=== PATIENT | male | born 1960 | race Caucasian/White ===

== ENCOUNTER 2020-09-22 17:38 | Inpatient (IN) ==
--- OUTSIDE RECORDS SUMMARY | 2020-09-22 17:42 | External Medical Summary | Continuity of Care Document ---
:1960 Author Name Vinny Mauricio, Provider Address Unavailable Unavailable , Care Team Providers Name Role Phone Unavailable Unavailable Unavailable Haleigh Brenner [email or web address] [place] Shakira MOREJON M.D. Unavailable Unavailable Unavailable Unavailable Unavailable Problems Cough (786.2) (R05) Nephrolithiasis (592.0) (N20.0) Hypothyroidism (244.9) (E03.9) Hypertension (401.9) (I10) Esophageal reflux (530.81) (K21.9) Allergies and Adverse Reactions No Known Drug Allergies (Allergy) Medications Lisinopril-hydroCHLOROthiazide 20-12.5 M G Oral Tablet; TAKE ONE TABLET BY MOUTH ONCE DAILY ANNA Brenner Start: 16-Feb-2014 Quantity: 30 Refills: 11 dilTIAZem HCl ER Coated Beads 240 MG Ora l Capsule Extended Release 24 Hour; TAKE 1 CAPSULE DAILY. ANNA Brenner Start: 16-Feb-2014 Quantity: 30 Refills: 3 Omeprazole 20 MG Oral Tablet Delayed Release; Take 1 tablet daily Luly Morejon Start: 16-Jan-2014 Refills: 0 Mario Beavers Levothyroxine Sodium 75 MCG Oral Tablet; TAKE ONE TABL ET BY MOUTH ONCE DAILY ANNA Brenner Start: 18-Mar-2014 Quantity: 30 Refills: 11 Procedures History of Appendectomy Status: Complete d History of Kidney Surgery Status: Comple liang History of Renal Lithotripsy Status: Com pleted Immunizations Immunizations not documented Family History Father Family history of Hypertension (V17.49) Status: Active Mother Family history of Family Health Status Of Mother - Status: Active Family history of Breast Cancer (V16.3) Status: Active Brother Family history of Family Health Status Of Brother - Good Sta tus: Active Sister Family history of Family Health Status Of Sister - Good Stat us: Active Social History - Smoking Status Ex-smoker Plan of Treatment Planned Observations Planned Goals not documented Results No Known Results Results not documented
--- OUTSIDE RECORDS SUMMARY | 2020-09-22 17:43 | External Medical Summary | Continuity of Care Document ---
:1960 Author Name Vinny Mauricio, Provider Address Unavailable Unavailable , Care Team Providers Name Role Phone Unavailable Unavailable Unavailable Haleigh Brenner PA-C Unavailable [email or web address] Shakira MOREJON M.D. Unavailable Unavailable Unavailable Unavailable Unavailable Problems Cough (786.2) (R05) Nephrolithiasis (592.0) (N20.0) Hypothyroidism (244.9) (E03.9) Hypertension (401.9) (I10) Esophageal reflux (530.81) (K21.9) Allergies and Adverse Reactions No Known Drug Allergies (Allergy) Medications Omeprazole 20 MG Oral Tablet Delayed Release; Take 1 t ablet daily Luly Morejon Start: 16-Jan-2014 Refills: 0 Lisinopril-hydroCHLOROthiazide 20-12.5 M G Oral Tablet; TAKE ONE TABLET BY MOUTH ONCE DAILY ANNA Brenner Start: 16-Feb-2014 Quantity: 30 Refills: 11 dilTIAZem HCl ER Coated Beads 240 MG Ora l Capsule Extended Release 24 Hour; TAKE 1 CAPSULE DAILY. ANNA Brenner Start: 16-Feb-2014 Quantity: 30 Refills: 3 Levothyroxine Sodium 75 MCG Oral Tablet; TAKE [...]
--- NOTE | 2020-09-22 18:13 | Emergency Department Note ---
Impression & Plan Right arm weakness, Hypertension, Elevated troponin, Stroke-like symptoms ED Provider Note NAME: TYE SCHAFFER AGE: 59 SEX: M : 1960 ARRIVES VIA: Walk-In INFORMANT: [Patient][] ED PROVIDER(S): [Senthil Underwood MD] CHIEF COMPLAINT: Stroke evaluation HISTORY OF PRESENT ILLNESS: The patient is a 59-year-old male presents with 3 days of symptoms. The patient states that he has noticed that his right arm is weak and numb and he is having a hard time controlling it. He could not shave for example and has a hard time driving. He states that he just does not seem to have the right functionality of the right arm. He also today, noticed some right facial numbness. His has noticed that his speech is slightly slurred. The patient also has been dizzy and somewhat off balance. He staggered a few times. He denies any lower extremity weakness or numbness. There has been no fever, chills, cough or congestion. No chest pain, no headache. The patient does not have any history of CVA. No known COVID-19 exposures. Of note, the patient has not taken his blood pressure medication in multiple years. REVIEW OF SYSTEMS: See HPI for pertinent positives and negatives. A total of ten systems were reviewed and were otherwise negative. PMHx/PSHx: See Below SOCIAL HISTORY: See Below. PHYSICAL EXAM: GENERAL: Patient is in no acute distress. HEENT: No acute trauma, normocephalic atraumatic, mucous membranes moist, no nasal congestion, no scleral icterus. NECK: No stridor, no adenopathy, no meningismus, trachea is midline. LUNGS: Clear to auscultation bilaterally, no wheeze, no rhonchi, breath sounds equal. HEART: Without murmurs gallops or rubs, regular rate and rhythm. ABDOMEN: Soft, nontender, bowel sounds positive, no hernias, no peritonitis. EXTREMITIES: No cyanosis or edema, full range of motion of all the joints without pain or difficulty, no signs for acute trauma. NEUROLOGIC: Oriented x 3. There is no facial droop. The speech is slightly slurred. He does have decreased right upper extremity cerebellar functionality. No extremity drifting to the upper or lower extremities. No lower extremity cerebellar dysfunction. SKIN: No rash, no jaundice, no diaphoresis. DIFFERENTIAL DIAGNOSIS: Infection, dehydration, metabolic abnormality, hypo/hyperglycemia, stroke, TIA, intracranial bleeding, electrolyte disturbance, anemia, hypoxia, cardiac sources, intracerebral event, toxicologic, neurologic, as well as other pathologies. EMERGENCY DEPARTMENT COURSE/PROCEDURES: ECG: Indication was possible stroke. The ECG shows a normal sinus rhythm with some nonspecific ST change. There is some LVH present. There are inverted T waves laterally possibly consistent with the LVH. The rate is 79. The QTc is 421. Continuous Cardiac Monitoring: An order was placed for continuous cardiac monitoring. The monitor shows a rate of 67 with normal sinus rhythm. Critical Care Note: I have personally spent 35 minutes of critical care time in the direct management of this patient. This includes bedside care, interpre tation of diagnostic studies, and testing, discussion with consultants, patient, and family members, and other required patient management activities. This 35 minutes is in excess of all separately billable procedures. MEDICAL DECISION MAKING: There is no leukocytosis or concerning anemia. There is a normal platelet count. No coagulopathy. No kidney failure. Magnesium is slightly low at 1.7. No liver enzyme elevation. ECG shows a normal sinus rhythm with LVH. No ST elevation. Cardiac enzyme testing x1 is slightly elevated, this elevation could indicate some cardiac injury or strain. Brain CT shows no acute bleed or mass- effect. CT angio of the head and neck does not show any significant stenosis or thrombosis. On exam, the patient was hypertensive. He had some cerebellar dysfunction with the right upper extremity. I thought I noticed a slight speech slur at times. Patient received IV labetalol and then IV hydralazine, this did help control his blood pressure. He received IV magnesium for the slightly low magnesium value. The patient presents with hypertension, strokelike symptoms, right arm weakness. He has an elevated troponin on work-up. I do think a hospital stay is warranted. He requires a full stroke work-up and blood pressure control. He requires a cardiac work-up. I did speak to the patient, I spoke with case management. The on-call hospitalist was consulted. Of note, the patient is clearly not a TPA candidate. His symptoms began 3 days ago. He is out of the TPA window. Past Med/Surg History Medical History Hypertension Social History Smoking Status: Former smoker Tobacco Type: Cigarettes Feels Safe at Home: Yes Allergies Allergies Allergy/AdvReac Type Severity Reaction Status Date / Time No Known Allergies Allergy Unverified 09/22/20 20:57 Home Meds Home Medications Medication Instructions Recorded Confirmed omeprazole magnesium [Prilosec OTC] 20 mg PO DAILY 09/22/20 09/22/20 Results & Data (ED) Vital Signs Vital Signs - 24 hr 09/22/20 17:42 09/22/20 18:03 09/22/20 18:07 Temperature Source Oral Pulse Rate 88 87 Pulse Rate from SpO2 Sensor Respiratory Rate 20 20 Respiratory Effort / Characteristics Non-Labored Respiratory Depth Normal Normal Blood Pressure 215/102 H Blood Pressure [Right Arm] Blood Pressure Mean 139 Blood Pressure Mean [Right Arm] Pulse Oximetry 96 Oxygen Delivery Method Room Air Room Air Sepsis Recent Fever Within 48 Hours No Sepsis New/Unexplained Change in Mental Status N/A Sepsis Action Taken by Nursing No Action Required 09/22/20 18:16 09/22/20 18:24 09/22/20 18:30 Temperature Source Pulse Rate 76 73 82 Pulse Rate from SpO2 Sensor Respiratory Rate 16 19 20 Respiratory Effort / Characteristics Respiratory Depth Blood Pressure 176/104 H 172/98 H Blood Pressure [Right Arm] 176/104 H Blood Pressure Mean 134 130 Blood Pressure Mean [Right Arm] 128 Pulse Oximetry 98 Oxygen Delivery Method Sepsis Recent Fever Within 48 Hours Sepsis New/Unexplained Change in Mental Status Sepsis Action Taken by Nursing 09/22/20 18:31 09/22/20 18:56 09/22/20 19:08 Temperature Source Pulse Rate 78 Pulse Rate from SpO2 Sensor Respiratory Rate 17 20 Respiratory Effort / Characteristics Respiratory Depth Blood Pressure 160/86 H Blood Pressure [Right Arm] Blood Pressure Mean 100 Blood Pressure Mean [Right Arm] Pulse Oximetry Oxygen Delivery Method Sepsis Recent Fever Within 48 Hours Sepsis New/Unexplained Change in Mental Status Sepsis Action Taken by Nursing 09/22/20 19:30 09/22/20 19:31 09/22/20 20:00 Temperature Source Pulse Rate 69 70 69 Pulse Rate from SpO2 Sensor 69 69 68 Respiratory Rate 17 14 21 Respiratory Effort / Characteristics Respiratory Depth Blood Pressure 170/97 H 164/103 H Blood Pressure [Right Arm] Blood Pressure Mean 141 119 Blood Pressure Mean [Right Arm] Pulse Oximetry 94 95 96 Oxygen Delivery Method Sepsis Recent Fever Within 48 Hours Sepsis New/Unexplained Change in Mental Status Sepsis Action Taken by Nursing 09/22/20 20:01 09/22/20 20:30 09/22/20 20:31 Temperature Source Pulse Rate 73 68 67 Pulse Rate from SpO2 Sensor 73 69 68 Respiratory Rate 15 20 17 Respiratory Effort / Characteristics Respiratory Depth Blood Pressure 166/99 H Blood Pressure [Right Arm] Blood Pressure Mean 127 Blood Pressure Mean [Right Arm] Pulse Oximetry 96 93 93 Oxygen Delivery Method Sepsis Recent Fever Within 48 Hours Sepsis New/Unexplained Change in Mental Status Sepsis Action Taken by [facility] Medications Current Medication List: was personally reviewed by me Laboratory Data Attestation: I reviewed the patient's lab results. Result diagrams: 09/22/20 17:55 09/22/20 17:55 Lab Results 09/22/20 09/22/20 09/22/20 Range/Units 17:55 17:55 17:55 WBC 9.16 (4.8-10.8) K/uL RBC 4.83 (4.7-6.1) M/uL Hgb 14.6 (14.0-18.0) g/dL Hct 41.0 L (42-52) % MCV 84.9 (80-100) fL MCH 30.2 (25-34) pg MCHC 35.6 (32-36) g/dL RDW Std Deviation 40.1 (36.4-46.3) fL RDW Coeff of Eran 13.1 (11.5-14.5) % Plt Count 317 (130-400) K/uL MPV 9.8 (7.4-10.4) fL Immature Gran % (Auto) 0.3 % Neut % (Auto) 54.3 % Lymph % (Auto) 33.0 % [place] % (Auto) 8.1 % Eos % (Auto) 3.5 % Baso % (Auto) 0.8 % Neut # (Auto) 4.98 (1.4-6.5) K/uL Lymph # (Auto) 3.02 (1.2-3.4) K/uL [place] # (Auto) 0.74 H (0.11-0.59) K/uL Eos # (Auto) 0.32 (0-0.5) K/uL Baso # (Auto) 0.07 (0-0.2) K/uL Immature Gran # (Auto) 0.03 H (0.00-0.02) K/uL PT 10.4 (9.0-12.0) Seconds INR 1.0 (0.9-1.1) APTT 26.8 (21.0-31.0) Seconds PTT Ratio 1.0 Sodium 138 (136-145) mmol/L Potassium 3.9 (3.5-5.1) mmol/L Chloride 105 (98-107) mmol/L Carbon Dioxide 27 (21-32) mmol/L Anion Gap 6.0 (3-11) BUN 12 (7-18) mg/dl Creatinine 1.16 (0.6-1.4) mg/dl Est Cr Clr Drug Dosing 80.5 ml/min Est GFR ( Amer) 80.0 Est GFR (Non-Af Amer) 69.0 BUN/Creatinine Ratio 10.0 (10-20) Glucose 149 H (70-99) mg/dl POC Glucose (70-99) mg/dl Calcium 8.5 (8.5-10.1) mg/dl Magnesium 1.7 L (1.8-2.4) mg/dl Total Bilirubin 0.3 (0.2-1) mg/dl AST 28 (15-37) U/L ALT 55 (12-78) U/L Alkaline Phosphatase 99 (45-117) U/L Troponin I 0.052 H* (0-0.045) ng/ml Total Protein 8.4 H (6.4-8.2) gm/dl Albumin 3.9 (3.4-5.0) gm/dl Globulin 4.5 H (2.5-4.0) gm/dl Albumin/Globulin Ratio 0.9 (0.9-2) Blood Type Antibody Screen 09/22/20 09/22/20 Range/Units 18:18 18:26 WBC (4.8-10.8) K/uL RBC (4.7-6.1) M/uL Hgb (14.0-18.0) g/dL Hct (42-52) % MCV (80-100) fL MCH (25-34) pg MCHC (32-36) g/dL RDW Std Deviation (36.4-46.3) fL RDW Coeff of Eran (11.5-14.5) % Plt Count (130-400) K/uL MPV (7.4-10.4) fL Immature Gran % (Auto) % Neut % (Auto) % Lymph % (Auto) % [place] % (Auto) % Eos % (Auto) % Baso % (Auto) % Neut # (Auto) (1.4-6.5) K/uL Lymph # (Auto) (1.2-3.4) K/uL [place] # (Auto) (0.11-0.59) K/uL Eos # (Auto) (0-0.5) K/uL Baso # (Auto) (0-0.2) K/uL Immature Gran # (Auto) (0.00-0.02) K/uL PT (9.0-12.0) Seconds INR (0.9-1.1) APTT (21.0-31.0) Seconds PTT Ratio Sodium (136-145) mmol/L Potassium (3.5-5.1) mmol/L Chloride (98-107) mmol/L Carbon Dioxide (21-32) mmol/L Anion Gap (3-11) BUN (7-18) mg/dl Creatinine (0.6-1.4) mg/dl Est Cr Clr Drug Dosing ml/min Est GFR ( Amer) Est GFR (Non-Af Amer) BUN/Creatinine Ratio (10-20) Glucose (70-99) mg/dl POC Glucose 133 H (70-99) mg/dl Calcium (8.5-10.1) mg/dl Magnesium (1.8-2.4) mg/dl Total Bilirubin (0.2-1) mg/dl AST (15-37) U/L ALT (12-78) U/L Alkaline Phosphatase (45-117) U/L Troponin I (0-0.045) ng/ml Total Protein (6.4-8.2) gm/dl Albumin (3.4-5.0) gm/dl Globulin (2.5-4.0) gm/dl Albumin/Globulin Ratio (0.9-2) Blood Type O Positive Antibody Screen NEGATIVE Administered Medications Discontinued Medications Hydralazine HCl (Hydralazine Hcl 20 Mg/Ml Vial) 10 mg IV NOW STA Stop: 09/22/20 20:17 Last Admin: 09/22/20 20:36 Dose: 10 mg Documented by: [id number] Magnesium Sulfate/Dextrose (Magnesium Sulfate / D5w) 1 gm in 100 mls @ 100 mls/hr IV NOW STA Stop: 09/22/20 19:53 Last Infusion: 09/22/20 20:37 Dose: 0 mls/hr Documented by: [id number] Admin: 09/22/20 19:34 Dose: 100 mls/hr Documented by: [id number] Labetalol HCl (Labetalol Hcl Iv 5 Mg/Ml 20ml) 10 mg IV NOW STA Stop: 09/22/20 18:18 Last Admin: 09/22/20 18:41 Dose: 10 mg Documented by: [id number] Cosigned by: [id number] Imaging Data Radiologist's Impression: HEAD CT NONCONTRAST CT DOSE: HISTORY: Right arm and facial numbness. Stroke Like Symptoms TECHNIQUE: Multiaxial CT images of the head were performed without the use of intravenous contrast. Automated exposure control was utilized for this study. A dose lowering technique was utilized adhering to the principles of ALARA. Comparison: None. Findings: The paranasal sinuses and mastoid air cells are clear. The calvarium and skull base are intact. The ventricles and sulci are within normal limits. There is no mass, hematoma, midline shift, or acute infarct. Impression: No acute intracranial abnormality. HEAD & NECK CTA HISTORY: Right arm and facial numbness. Stroke Like Symptoms TECHNIQUE: Multiaxial CT images of the head were performed following the intravenous administration of contrast to evaluate the major cerebral vessels. Multiaxial CT images of the neck were also performed following the intravenous administration of contrast to evaluate the major cervical vessels. Maximum intensity projection images were also obtained. A dose lowering technique was utilized adhering to the principles of ALARA. COMPARISON: Head CT 09/22/2020. FINDINGS: There is no mass, hematoma, midline shift, or acute infarct. Visualized intracranial internal carotid arteries, distal vertebral arteries, and basilar artery are widely patent. There is no significant stenosis, occlusion, or aneurysm seen within the bilateral ACAs, MCAs, or aircraft instrument engineer. The major dural venous sinuses are patent. Mild calcified plaque within the distal left vertebral artery. The aortic arch and proximal great vessels are widely patent. There is no significant stenosis, occlusion, or dissection identified within the bilateral common carotid, internal carotid, or vertebral arteries. The lung apices demonstrate an incidental note of a right azygos lobe. Mild emphysema. Minimal calcified plaque within the left carotid bifurcation. There are tortuous bilateral internal carotid arteries. IMPRESSION: 1. No significant stenosis, occlusion, or aneurysm within the [place]. 2. No significant stenosis, occlusion, or dissection identified within the carotid or vertebral arteries. Discharge Plan Visit Data Chief Complaint: Stroke/CVA Symptoms Stated Complaint: right side numbness, dizzy, balance off ED Provider: Senthil Underwood Discharge Problem: Right arm weakness, Hypertension, Elevated troponin, Stroke-like symptoms Patient Disposition: Admitted As Inpatient Condition: Good Forms Stand Alone Forms: [employer] Prescriptions Prescriptions: No Action omeprazole magnesium [Prilosec OTC] 20 mg Tablet,Delayed Release (Dr/Ec) 20 mg PO DAILY RF: 0 Referrals Referrals: Ankit Morejon MD [Primary Care Provider] - Discharge Problem: Hypertension Qualifiers: Hypertension type: unspecified Qualified Code(s): I10 - Essential (primary) hypertension
[2020-09-22 18:17] LABS: Basophils # (auto) 0.07 K/uL (0-0.2); Basophils % (auto) 0.8 %; Eosinophils # (auto) 0.32 K/uL (0-0.5); Eosinophils % (auto) 3.5 %; Hemoglobin 14.6 g/dL (14.0-18.0); Immature Granulocytes # (auto) 0.03 K/uL (0.00-0.02); Immature Granulocytes % (auto) 0.3 %; Lymphocytes # (auto) 3.02 K/uL (1.2-3.4); Mean Corpuscular Hemoglobin 30.2 pg (25-34); Mean Corpuscular Hgb Conc 35.6 g/dL (32-36); Mean Corpuscular Volume 84.9 fL (80-100); Mean Platelet Volume 9.8 fL (7.4-10.4); Monocytes # (auto) 0.74 K/uL (0.11-0.59); Monocytes % (auto) 8.1 %; Neutrophils # (auto) 4.98 K/uL (1.4-6.5); Neutrophils % (auto) 54.3 %; Platelet Count 317 K/uL (130-400); RDW Coefficient of Variation 13.1 % (11.5-14.5); RDW Standard Deviation 40.1 fL (36.4-46.3); Red Blood Count 4.83 M/uL (4.7-6.1); White Blood Count 9.16 K/uL (4.8-10.8)
[2020-09-22] MEDS ORDERED: LABETALOL HCL IV 5 MG/ML 20ML IV STA (18:17)
[2020-09-22 18:27] LABS: Partial Thromboplastin Time 26.8 Seconds (21.0-31.0); Prothrombin Time 10.4 Seconds (9.0-12.0)
[2020-09-22 18:54] LABS: Albumin Globulin Ratio 0.9 (0.9-2); Albumin Level 3.9 gm/dl (3.4-5.0); Bilirubin,Total 0.3 mg/dl (0.2-1); Calcium 8.5 mg/dl (8.5-10.1); Creatinine Clr Calc Pharmacy 80.5 ml/min; Globulin 4.5 gm/dl (2.5-4.0); Magnesium 1.7 mg/dl (1.8-2.4); Potassium 3.9 mmol/L (3.5-5.1); Total Protein 8.4 gm/dl (6.4-8.2); Troponin I 0.052 ng/ml (0-0.045)
[2020-09-22] MEDS ORDERED: MAGNESIUM SULFATE / D5W 1 GM/100 ML BAG IV STA (18:54)
--- NOTE | 2020-09-22 19:23 | CT Scan Report ---
HEAD CT NONCONTRAST CT DOSE: HISTORY: Right arm and facial numbness. Stroke Like Symptoms TECHNIQUE: Multiaxial CT images of the head were performed without the use of intravenous contrast. A utomated exposure control was utilized for this study. A dose lowering technique was utilized adheri ng to the principles of ALARA. Comparison: None. Findings: The paranasal sinuses and mastoid air cells are clear. The calvarium and skull base are int act. The ventricles and sulci are within normal limits. There is no mass, hematoma, midline shift, or acute infarct. Impression: No acute intracranial abnormality. ACT 112: Negative or not required by law. Electronically signed by: Francis Shoemaker M.D. 09/22/2020 7:22 PM
--- NOTE | 2020-09-22 19:29 | CT Scan Report ---
HEAD & NECK CTA HISTORY: Right arm and facial numbness. Stroke Like Symptoms TECHNIQUE: Multiaxial CT images of the head were performed following the intravenous administration o f contrast to evaluate the major cerebral vessels. Multiaxial CT images of the neck were also perform ed following the intravenous administration of contrast to evaluate the major cervical vessels. Maxim um intensity projection images were also obtained. A dose lowering technique was utilized adhering to the principles of ALARA. COMPARISON: Head CT 09/22/2020. FINDINGS: There is no mass, hematoma, midline shift, or acute infarct. Visualized intracranial internal carotid arteries, distal vertebral arteries, and basilar artery are widely patent. There is no significant s tenosis, occlusion, or aneurysm seen within the bilateral ACAs, MCAs, or cyber security administrator. The major dural venous sinuses are patent. Mild calcified plaque within the distal left vertebral artery. The aortic arch and proximal great vessels are widely patent. There is no significant stenosis, occ lusion, or dissection identified within the bilateral common carotid, internal carotid, or vertebral arteries. The lung apices demonstrate an incidental note of a right azygos lobe. Mild emphysema. Mini mal calcified plaque within the left carotid bifurcation. There are tortuous bilateral internal carot id arteries. IMPRESSION: 1. No significant stenosis, occlusion, or aneurysm within the [place]. 2. No significant stenosis, occlusion, or dissection identified within the carotid or vertebral arter ies. ACT 112: Negative or not required by law. Electronically signed by: Francis Shoemaker M.D. 09/22/2020 7:28 PM
[2020-09-22] MEDS ORDERED: hydrALAZINE HCL 20 MG/ML VIAL IV STA (20:16)
[2020-09-22] MEDS ORDERED: ONDANSETRON INJ 2 MG/ML 2 ML VIAL IV PRN (21:27)
[2020-09-22] MEDS ORDERED: ACETAMINOPHEN 325 MG TAB PO PRN (21:27)
[2020-09-22] MEDS ORDERED: LABETALOL HCL IV 5 MG/ML 20ML IV PRN (21:38)
--- NOTE | 2020-09-22 22:03 | History & Physical Report ---
Date of Service September 22, 2020 Assessment & Plan (1) Stroke-like symptoms: * Presenting with RIGHT upper extremity weakness and sensation abnormality. * Exam findings concerning for possible CVA type presentation. * Initial CT and CT of the head were negative. * Patient is 72 hours out from initial onset of symptoms. Well outside the window of TPA. * Will order MRI of the brain for further assessment. * Will add echocardiogram as well. * Question component of symptoms related to severe hypertension, however we will see as the patient progresses throughout his hospitalization with stringent control of his blood pressure. * Will check lipids and A1c as well. * Will place on full dose aspirin. * Appreciate neurology consultation. (2) Right arm weakness: * Concerning for above-mentioned strokelike symptoms. (3) Hypertension: * Patient presented with systolic blood pressure in the 200s. * Previously on 2 separate medications 5 years ago to maintain his blood pressures. * Will add labetalol as needed at this time. * Monitor for any change in clinical status with improvement in blood pressure. * Goal BP 150-180 systolic for the first 24 hours. * Patient will likely need outpatient follow-up as he has not seen a PCP in 5 years. (4) Elevated troponin: * Troponins minimally leaked at this point. * EKG does show some concerning findings with what appears to be ST depressions laterally with possible slight elevations in leads V1 and V2. * Patient without complaint of chest pain. * Likely secondary to hypertensive state. * Trend troponins. * Daily EKGs. * Echocardiogram ordered. * Stringent blood pressure control. History of Present Illness Primary Care Provider: Mario Morejon MD Patient is a 59-year-old male with a significant past medical history of untreated hypertension. He presented to the emergency department this afternoon with a 3-day history of RIGHT upper extremity numbness, weakness, and loss of sensation. He reports that he initially noticed this on Sunday afternoon while driving. He states that he initially had mostly numbness and difficulty with movement. The symptoms had not improved in the Sunday. Today, the patient had some trouble shaving as he could not control his RIGHT hand. He also noticed RIGHT-sided facial numbness today and his reported that he was slurring his speech. In addition, while outside, the reports that he was unsteady on his feet and did stumble into their son's car. Patient has never experienced similar symptoms in the past. He does report that he was previously treated with 2 medications for his high blood pressure, but has not seen a primary care doctor in at least 5 years. The patient reports that he has had ongoing shortness of breath which has not been new over the last few years. Additionally, he complains of some occasional chest discomfort which he has difficulty explaining, but reports that it has been very rare and on occasion only over the past few years. Patient has a remote history of smoking. He quit 15 years ago. He does not drink alcohol. The patient lives with his . He is gainfully employed. Other than the above-mentioned symptoms, the patient currently denies any complaints of headaches, dizziness, lightheadedness, visual disturbances, facial droop, chest pain, palpitations, shortness of breath, diaphoresis, nausea, vomiting, or abdominal discomfort. Allergies Allergy/AdvReac Type Severity Reaction Status Date / Time No Known Allergies Allergy Unverified 09/22/20 20:57 Home Medications Medication Instructions Recorded Confirmed Type omeprazole magnesium [Prilosec OTC] 20 mg PO DAILY 09/22/20 09/22/20 History Past Med/Surg History Medical History Hypertension Social History Smoking Status: Former smoker Tobacco Type: Cigarettes Hx Alcohol Use: No Hx Substance Use: No Communication Ability: Effective Skating Rink Manager Required: No Beliefs That Will Affect Care: None Current Living Situation: Significant Other Other Information That Helps Us Care for You: No Feels Safe at Home: Yes Safety Concerns: Feels Safe At This Time Assistive Devices: None Review of Systems Review of Systems: A complete 10 point review of systems was reviewed with the patient with pertinent positives and negatives as per history of present illness. All else were negative. Physical Exam Physical Exam: VITAL SIGNS - Vital signs and nursing notes were reviewed. GENERAL - 59-year-old male appearing his stated age who is in no acute distress. Communicates well with provider and answers questions appropriately. HEAD - Normocephalic, Atraumatic. No Bales's Sign or Raccoon's Eyes. No depressed skull fractures palpable. EYES - PERRL with EOMI bilaterally. Sclera anicteric. Palpebral conjunctiva pink and moist with no injection noted. EARS - No deformities of external structures noted on gross examination bilaterally. No pain elicited with palpation of the tragus bilaterally. NOSE - Midline and without cyanosis. No epistaxis or purulent drainage noted. Septum midline without deviation or septal hematoma noted. MOUTH/OROPHARYNX - Without perioral cyanosis. Buccal mucosa pink and moist and without leukoplakia. Tongue midline with equal elevation of palate bilaterally. No tonsillar hypertrophy, erythema, or exudates noted. NECK - Neck with FROM. Supple to palpation. No lymphadenopathy noted. No nuchal rigidity. LUNGS - Chest wall symmetric without accessory muscle use, intercostals retractions, or central cyanosis. Normal vesicular breath sounds CTA B/L. No wheezes, rales, or rhonchi appreciated. CARDIAC - RRR with S1/S2. No murmur, rubs, or gallops appreciated. ABDOMEN - Abdominal contour obese without pulsations or visible masses. BS normoactive all four quadrants. No tenderness, palpable masses, hepatosplenomegaly, or ascites noted. EXTREMITIES - No pretibial edema present. +3/5 radial and dorsalis pedis pulses palpated throughout. FROM with no tremors, fasciculations, or clonus noted on PROM throughout. Patient is with a slight bit of weakness in the RIGHT upper extremity versus left. Lower extremities with bilateral +5/5 strength. NEUROLOGIC -despite full range of motion of the RIGHT upper extremity, the patient is with drift on exam. Additionally, he has difficulty with [id number]. He also has obvious discrepancy of sensation with sharp versus dull sensation to the RIGHT upper extremity and RIGHT-sided face. No other abnormalities noted. PSYCH - A&Ox3 and cooperates fully with examiner. Pt is very pleasant and interacts well with examiner. Results & Data Results & Data ([facility]) Vital Signs (Past 12 Hours) Vital Signs Pulse Resp BP BP Pulse Ox 09/22/20 21:31 83 18 09/22/20 21:30 74 19 156/81 H 09/22/20 21:02 79 14 97 09/22/20 21:01 74 14 150/66 H 96 09/22/20 21:00 72 20 96 09/22/20 20:31 67 17 93 09/22/20 20:30 68 20 166/99 H 93 09/22/20 20:01 73 15 96 09/22/20 20:00 69 21 164/103 H 96 09/22/20 19:31 70 14 95 09/22/20 19:30 69 17 170/97 H 94 09/22/20 19:08 20 09/22/20 18:56 160/86 H 09/22/20 18:31 78 17 09/22/20 18:30 82 20 172/98 H 09/22/20 18:24 73 19 176/104 H 176/104 H 98 09/22/20 18:16 76 16 09/22/20 18:07 87 20 09/22/20 17:42 88 20 215/102 H 96 Code Status & VTE Plan VTE Prophylaxis Plan VTE Prophylaxis will be ordered: Yes Supervising Physician Co-Signing Physician Notes Patient seen and examined, chart reviewed, case discussed with KACIE Vega and I agree with his assessment and plan as documented above. Briefly, patient is a 59yo C male with untreated HTN presenting with RUE weakness and diminished sensation that has been ongoing x 3 days. No FAIRCHILD, visual changes, slurred speech or facial droop appreciated. No LE symptoms. Occasional chest discomfort. No current chest pain. On exam he is afebrile, hypertensive, NAD Skin - intact HEENT - NC/AT, PERRL, neck supple Heart - +S1/S2, regular, no m/r/g Lungs - CTA Abd - +BS, soft, NT/ND Ext - No edema, warm and well perfused Neuro - diminished sensation RUE and right face, +RUE drift Labs and images reviewed. Troponin = 0.058 EKG with NSR at 79, leftward axis, DH=699, QRS=88, TRg=436, suggestion of LVH with repolarization abnormality Assessment/Plan: concern for CVA with RUE/facial deficit. CT head and CTA Head and neck unremarkable for acute pathology -Neuro checks -MRI -2D echo -A1C and lipid panel -Trend troponin - suspect demand ischemia in setting of markedly elevated BP. Patient should have additional cardiac workup at some point -Remainder of plan as above PG Care Time/CCT Total # of Minutes Spent Total Time Spent with Patient: Total time spent is greater than 50% in coordination of care (as documented) at patient's floor/unit and/or counseling patient: Coding Level of Care Code 68537 Initial Inpt Care Lvl 3 Diagnoses Stroke-like symptoms R29.90 Right arm weakness R29.898 Hypertension I10 Hypertension type: unspecified Elevated troponin R77.8 Time Spent (min) 3 (1) Hypertension Hypertension type: unspecified Qualified Code(s): I10 - Essential (primary) hypertension
[2020-09-22] MEDS ORDERED: ASPIRIN CHEW 324 MG PO STA (22:07)
[2020-09-22 22:28] LABS: Appearance Urine Clear (Clear); Bilirubin Urine Negative (Negative); Blood Urine Negative (Negative); Color Urine Yellow; Glucose Urine UA Negative (Negative); Ketones Urine Negative (Negative); Leukocyte Esterase Urine Negative (Negative); Nitrite Urine Negative (Negative); Protein Urine Negative (Negative); Specific Gravity Urine > 1.045 (1.000-1.030); Urobilinogen Urine Negative (Negative); pH Urine 6.5 (4.5-7.5)
[2020-09-23 05:09] LABS: Basophils # (auto) 0.05 K/uL (0-0.2); Basophils % (auto) 0.6 %; Eosinophils # (auto) 0.29 K/uL (0-0.5); Eosinophils % (auto) 3.5 %; Hemoglobin 13.8 g/dL (14.0-18.0); Immature Granulocytes # (auto) 0.04 K/uL (0.00-0.02); Immature Granulocytes % (auto) 0.5 %; Lymphocytes # (auto) 2.49 K/uL (1.2-3.4); Mean Corpuscular Hemoglobin 28.9 pg (25-34); Mean Corpuscular Hgb Conc 34.5 g/dL (32-36); Mean Corpuscular Volume 83.9 fL (80-100); Mean Platelet Volume 9.7 fL (7.4-10.4); Monocytes # (auto) 0.64 K/uL (0.11-0.59); Monocytes % (auto) 7.7 %; Neutrophils # (auto) 4.79 K/uL (1.4-6.5); Neutrophils % (auto) 57.7 %; Platelet Count 299 K/uL (130-400); RDW Coefficient of Variation 13.2 % (11.5-14.5); RDW Standard Deviation 40.1 fL (36.4-46.3); Red Blood Count 4.77 M/uL (4.7-6.1)
[2020-09-23 05:45] LABS: BUN Creatinine Ratio 10.5 (10-20); Calcium 8.4 mg/dl (8.5-10.1); Creatinine Clr Calc Pharmacy 94.2 ml/min; Est GFR (African American) 96.9; Est GFR (Non-African American) 83.6; Magnesium 2.2 mg/dl (1.8-2.4); Potassium 3.5 mmol/L (3.5-5.1)
[2020-09-23 06:25] LABS: Phosphorus 2.9 mg/dl (2.5-4.9); Troponin I 0.058 ng/ml (0-0.045)
[2020-09-23 07:17] LABS: Estimated Average Glucose 154 mg/dl
--- NOTE | 2020-09-23 07:39 | XRay Report ---
XR chest 1V portable CLINICAL HISTORY: Strokelike symptoms COMPARISON STUDY: No previous studies for comparison. FINDINGS: The heart is normal in size. There is no failure. There is no focal pulmonary consolidation . There are no pleural effusions. There is an azygos fissure.[ IMPRESSION: No active disease in the chest. ACT 112: Negative or not required by law. Electronically signed by: Pasquale Allen M.D. 09/23/2020 7:37 AM
[2020-09-23] MEDS ORDERED: INFLUENZA VIRUS QUAD VACCINE 0.5 ML SYR IM ONE (08:00)
[2020-09-23] MEDS ORDERED: INFLUENZA ADMINISTRATION CHARGE ONE (08:00)
--- NOTE | 2020-09-23 08:18 | Magnetic Resonance Report ---
Brain MRI WITHOUT CONTRAST HISTORY: Stroke symptoms. Right upper extremity weakness. TECHNIQUE: Multiplanar multisequence MRI of the brain was performed without the use of contrast. COMPARISON STUDY: Head CT 09/22/2020. FINDINGS: There is a 7 mm focus of restricted diffusion within the posterior limb of the left interna l capsule. This is consistent with a punctate acute infarct. The midline structures are intact. There is no mass, hematoma, midline shift. There are few scattered punctate foci of T2 hyperintensity seen within the periatrial white matter. These are nonspecific but favor mild microvascular ischemic herrera ge. The major vascular flow-voids at the skull is are well-maintained. The mastoid air cells are jane r. Small retention cyst within the right maxillary sinus. Otherwise, the paranasal sinuses are clear. The ventricles and sulci are within normal limits for age. IMPRESSION: 1. A punctate acute lacunar infarct seen within the posterior limb of the left internal capsule. 2. A few scattered T2 hyperintense foci seen within the periventricular white matter. These are nonsp ecific but favor mild microvascular ischemic change. ACT 112: Negative or not required by law. Electronically signed by: Francis Shoemaker M.D. 09/23/2020 8:16 AM
[2020-09-23] MEDS ORDERED: ASPIRIN 325 MG ECTAB PO SCH (09:00)
[2020-09-23] MEDS: ATORVASTATIN 40 MG TAB PO SCH (09:57)
--- NOTE | 2020-09-23 10:31 | CT Scan Report ---
HEAD & NECK CTA HISTORY: Right arm and facial numbness. Stroke Like Symptoms TECHNIQUE: Multiaxial CT images of the head were performed following the intravenous administration o f contrast to evaluate the major cerebral vessels. Multiaxial CT images of the neck were also perform ed following the intravenous administration of contrast to evaluate the major cervical vessels. Maxim um intensity projection images were also obtained. A dose lowering technique was utilized adhering to the principles of ALARA. COMPARISON: Head CT 09/22/2020. FINDINGS: There is no mass, hematoma, midline shift, or acute infarct. Visualized intracranial internal carotid arteries, distal vertebral arteries, and basilar artery are widely patent. There is no significant s tenosis, occlusion, or aneurysm seen within the bilateral ACAs, MCAs, or street light cleaner. The major dural venous sinuses are patent. Mild calcified plaque within the distal left vertebral artery. The aortic arch and proximal great vessels are widely patent. There is no significant stenosis, occ lusion, or dissection identified within the bilateral common carotid, internal carotid, or vertebral arteries. The lung apices demonstrate an incidental note of a right azygos lobe. Mild emphysema. Mini mal calcified plaque within the left carotid bifurcation. There are tortuous bilateral internal carot id arteries. IMPRESSION: 1. No significant stenosis, occlusion, or aneurysm within the [place]. 2. No significant stenosis, occlusion, or dissection identified within the carotid or vertebral arter ies. ACT 112: Negative or not required by law. Electronically signed by: Francis Shoemaker M.D. 09/22/2020 7:28 PM
--- NOTE | 2020-09-23 11:43 | Neurology Consultation ---
Date of Consultation September 23, 2020 Assessment & Plan (1) Stroke: Acute ischemic stroke within the posterior limb of the left internal capsule presenting with right face and arm numbness and mild associated weakness which began 3 days prior to presentation in the emergency department yesterday. His symptoms are improving. Patient has several stroke risk factors including uncontrolled hypertension, hyperlipidemia, and probable diabetes mellitus. I agree with daily low-dose aspirin and atorvastatin as prescribed. He will need ongoing management of hypertension and probable diabetes mellitus as well. Patient will need to reestablish with his PCP. PT/OT/speech therapy consultations are pending. Follow-up with echocardiogram results. I have no further immediate recommendations. History of Present Illness Reason for Consultation: Stroke Requesting Physician: Kan Vega PA-C Attending Physician: Seven Kirby MD History of Present Illness The patient is a 59-year old male with a chief complaint of numbness affecting the right upper extremity and right side of the face with associated mild weakness of the right arm that began 3 days prior to his assessment in the emergency department yesterday. His symptoms have modestly improved. He has a past medical history of hypertension but has not been taking any prescription medication and has not seen his primary care physician in several years. He has undergone a thorough neuro imaging evaluation including CT of the head, CTA of the head and neck, and brain MRI. He does have a small acute ischemic infarct within the posterior limb of the left internal capsule. His CT angiography is unremarkable. Imaging described in further detail below. His blood pressure was significantly elevated at the time of presentation, 215/102. His blood pressure is modestly improved this morning. He has been started on daily low- dose aspirin, and atorvastatin and has an order for labetalol as needed. The patient denies any prior history of stroke or TIA. No known history of MT. Family history noncontributory Allergies Allergy/AdvReac Type Severity Reaction Status Date / Time No Known Allergies Allergy Unverified 09/22/20 20:57 Home Medications Medication Instructions Recorded Confirmed Type omeprazole magnesium [Prilosec OTC] 20 mg PO DAILY 09/22/20 09/22/20 History Patient History Medical History Hypertension Social History Smoking Status: Former smoker Tobacco Type: Cigarettes Hx Alcohol Use: No Hx Substance Use: No Communication Ability: Effective Mock Up Assembler Required: No Beliefs That Will Affect Care: None Current Living Situation: Significant Other Other Information That Helps Us Care for You: No Feels Safe at Home: Yes Safety Concerns: Feels Safe At This Time Assistive Devices: None Review of Systems Constitutional: no fever and no chills Eyes: no blind spots and no diplopia Ear, Nose, Mouth, Throat: no hearing loss Respiratory: no cough and no dyspnea Cardiovascular: no chest pain and no palpitations Gastrointestinal: no nausea and no vomiting Genitourinary: no dysuria Musculoskeletal: no myalgia Integumentary: no rash and no lesions Neurologic: as per Subjective / HPI, + localized weakness and + loss of sensation; no headache(s), no confusion and no memory loss Psychiatric: no depression and no anxiety Hematologic / Lymphatic: no easy bleeding and no easy bruising Exam (Neuro) Constitutional: well developed and well nourished; no acute distress Eyes: normal visual estrada by confrontation, PERRL, normal accommodation and EOM intact bilaterally; no fundoscopic abnormality, no nystagmus and no papilledema Cardiovascular: Vessels: normal carotid upstroke; no carotid bruit Neurologic: Oriented to:: Person, Place and Time Memory: Short Term Intact and Remote Intact Attention: Span Intact and Concentration Intact Language: Naming Objects and Repeating Phrases Speech Fluency: negative Dysarthria Speech Aphasia: negative Aphasia Fund of Knowledge: Current Events, Past History and Vocabulary Cranial Nerves: Normal II (Visual estrada full to confrontation, visual acuity normal), III, IV, (Pupils equal round reactive to light and accommodation, eye movements normal), V (Facial sensation intact), VIII (Hearing intact), IX, X (Palate elevates to midline), XI (Shoulder shrug intact) and XII (Tongue protrudes to midline); Abnorm VII (There is flattening of the right nasolabial fold) Motor Strength: Normal Lower Extremities and Pronator Drift Laterality: Right; negative Normal Upper Extremities (There is mild weakness of the right upper extremity with associated dysmetria [id number] and subtle loss of finger dexterity.) Motor Tone: Normal Lower Extremities and Normal Upper Extremities Muscle Bulk/Involuntary Movements: No Involuntary Movements; negative Muscle Atrophy Sensation: Light Touch Intact, Pain/Temperature Intact, Vibration Intact and Proprioception Intact Coordination: Normal and Finger-Nose Abnormal Laterality: Right; negative Limited Balance, Dysdiadochokinesia and Heel-Gonzalez Abnormal Deep Tendon Reflexes: Rt Triceps: 2+, Lt Triceps: 2+, Rt Biceps: 2+, Lt Biceps: 2+, Rt Brachioradialis: 2+, Lt Brachioradialis: 2+, Rt Patellar: 2+, Lt Patellar: 2+, Rt Ankle: 2+ and Lt Ankle: 2+ Special Tests: negative Babinski Present Details: Gait and station not tested in the context of patient's current neurolo gical/medical status. Results & Data ([facility]) Vital Signs (Past 12 Hours) Vital Signs Temp Pulse Pulse Resp BP BP Pulse Ox 09/23/20 08:52 87 90 16 168/78 H 95 09/23/20 03:54 36.8 C 87 17 166/77 H 96 09/23/20 00:00 85 09/22/20 23:42 37.1 C 79 18 143/89 H 92 Laboratory Results WBC 8.30, hemoglobin 13.8, hematocrit 40.0, platelet count 299, sodium 139, potassium 3.5, BUN 10, creatinine 0.99, glucose 131, hemoglobin A1c 7.0, calcium 8.4, magnesium 2.2, troponin 0 0.058, triglycerides 747, cholesterol 216, HDL [address] of the head negative for hemorrhage or acute process. CT angiography of the head and neck negative for stenosis, occlusion, aneurysm, or dissection. MRI of the brain reveals an acute 7 mm lacunar infarct within the posterior limb of the left internal capsule. There is chronic mild microvascular ischemic disease. These findings were observed by the interpreting radiologist. I reviewed the images and agree. An electrocardiogram reveals a normal sinus rhythm, 74 bpm. Coding Level of Care Code 63167 Inpt Consult Level 5 Diagnoses Stroke I63.9
[2020-09-23] MEDS ORDERED: GLUCAGON FOR INJ 1 MG VIAL SQ PRN (12:39)
[2020-09-23] MEDS ORDERED: GLUCOSE 10 TABS/TUBE PO PRN (12:39)
[2020-09-23] MEDS ORDERED: GLUCOSE 40% GEL 15 GM TUBE PO PRN (12:39)
[2020-09-23] MEDS ORDERED: DEXTROSE 50% 50 ML SYRINGE IV PRN (12:39)
[2020-09-23] MEDS ORDERED: CARBOHYDRATES FOR HYPOGLYCEMIA PO PRN (12:39)
[2020-09-23 13:53] LABS: Calcium 8.9 mg/dl (8.5-10.1); Creatinine Clr Calc Pharmacy 72.9 ml/min; Est GFR (Non-African American) 61.3; Potassium 3.8 mmol/L (3.5-5.1)
[2020-09-23 14:12] LABS: Magnesium 2.1 mg/dl (1.8-2.4)
--- NOTE | 2020-09-23 15:28 | XCELERA ---
[id number]
[2020-09-23] MEDS: INSULIN ASPART 100 UNITS/ML 3 ML PEN SC SCH ×2 (16:44→21:11)
--- NOTE | 2020-09-23 18:31 | Hospitalist Progress Note ---
Date of Service September 23, 2020 Assessment & Plan (1) Stroke: Acute CVA: Lacunar infarct in the left internal capsule Presented with with right upper extremity numbness and weakness Weakness improving, numbness about the same Brain MRI confirmed lacunar infarct in the left internal capsule CT angiogram of the head and neck: Unremarkable Echocardiogram: Normal left ventricular systolic function, ejection fraction 60 to 65%, no regional wall motion abnormalities, severe concentric LVH No significant valvular abnormalities, no visualized plaque to left interatrial shunt Aspirin 81 mg and Lipitor 40 mg started Will need strict risk factor control occluding diabetes, hypertension, dyslipidemia New diagnosed diabetes type 2 A1c 7.0 Plan to start Metformin 5 mg twice daily on discharge Outpatient follow-up Hypertension Patient not adherent to previous antihypertensive medications Permissive hypertension for now in light of acute CVA Start metoprolol 12.5 mg twice daily tomorrow Dyslipidemia Triglyceride 747 Cholesterol 260 Atorvastatin Follow closely as an outpatient Episode of nonsustained ventricular tachycardia Asymptomatic Echocardiogram: Noted Plan to start metoprolol 25 mg p.o. twice daily tomorrow Monitor electrolytes Troponin elevation Troponin remained the same at 0.05 Likely secondary to underlying LVH DVT prophylaxis SCDs for now in light of elevated blood pressure Disposition PT and OT evaluation pending Anticipate discharge home tomorrow medically Admission and Anticipated Discharge Date Admission Date: September 22, 2020 Subjective Follow-up for acute CVA Seen resting in bed, comfortable, no distress, in good spirits States right upper extremity numbness is about the same Right upper extremity motor skills are improving Denies any other focal neurologic deficits No headache, chest pain, shortness of breath, palpitations, abdominal pain, nausea vomiting No other symptoms Review of Systems Review of Systems: All systems reviewed & are unremarkable except as noted in Subjective Physical Exam 2 Physical Exam: General- oriented x 3, not in distress, speaks in sentences with no effort or accessory muscle use Head- atraumatic Eyes- PERRL, EOMI, anicteric ENT- oropharynx clear Neck- supple, no JVD, no adenopathy, no thyromegaly; carotids +2/2, no bruits appreciated Lungs- clear to auscultation bilaterally, no rales/wheezes Heart- normal rate, regular rhythm; no murmur, no gallop, no rub appreciated Abdomen- normal bowel sounds, nondistended, soft, nontender, no masses or hepatosplenomegaly Extremities- no pretibial edema, no calf tenderness; peripheral pulses intact Neuro- alert, oriented x 3; CN 2-12 grossly intact; motor 5/5 bilaterally;sensation 50 % percent on right upper extremity otherwise 100% on all extremities; no other gross focal neurologic deficits Skin- warm & dry Results & Data Results & Data ([facility]) Vital Signs (Past 12 Hours) Vital Signs Temp Pulse Pulse Resp BP Pulse Ox 09/23/20 15:01 37.1 C 92 H 22 165/86 H 95 09/23/20 13:15 96 H 20 170/83 H 95 09/23/20 11:49 79 19 173/85 H 95 09/23/20 08:52 87 90 16 168/78 H 95 Laboratory Results Laboratory Results - last 24 hr 09/22/20 09/22/20 09/22/20 17:55 17:55 18:26 WBC RBC Hgb Hct MCV MCH MCHC RDW Std Deviation RDW Coeff of Eran Plt Count MPV Immature Gran % (Auto) Neut % (Auto) Lymph % (Auto) [place] % (Auto) Eos % (Auto) Baso % (Auto) Neut # (Auto) Lymph # (Auto) [place] # (Auto) Eos # (Auto) Baso # (Auto) Immature Gran # (Auto) Sodium 138 Potassium 3.9 Chloride 105 Carbon Dioxide 27 Anion Gap 6.0 BUN 12 Creatinine 1.16 Est Cr Clr Drug Dosing 80.5 Est GFR ( Amer) 80.0 Est GFR (Non-Af Amer) 69.0 BUN/Creatinine Ratio 10.0 Glucose 149 H POC Glucose Estimat Average Glucose Hemoglobin A1c Calcium 8.5 Phosphorus Magnesium 1.7 L Total Bilirubin 0.3 AST 28 ALT 55 Alkaline Phosphatase 99 Troponin I 0.052 H* Total Protein 8.4 H Albumin 3.9 Globulin 4.5 H Albumin/Globulin Ratio 0.9 Triglycerides Cholesterol LDL Cholesterol, Calc VLDL Cholesterol, Calc HDL Cholesterol Cholesterol/HDL Ratio Urine Color Urine Appearance Urine pH Ur Specific [place] Urine Protein Urine Glucose (UA) Urine Ketones Urine Blood Urine Nitrite Urine Bilirubin Urine Urobilinogen Ur Leukocyte Esterase Nasal Screen MRSA (PCR) Hepatitis C Ab Screen Neg SARS-CoV-2 Ag (Rapid) Blood Type O Positive Antibody Screen NEGATIVE 09/22/20 09/22/20 09/22/20 22:00 22:31 23:45 WBC RBC Hgb Hct MCV MCH MCHC RDW Std Deviation RDW Coeff of Eran Plt Count MPV Immature Gran % (Auto) Neut % (Auto) Lymph % (Auto) [place] % (Auto) Eos % (Auto) Baso % (Auto) Neut # (Auto) Lymph # (Auto) [place] # (Auto) Eos # (Auto) Baso # (Auto) Immature Gran # (Auto) Sodium Potassium Chloride Carbon Dioxide Anion Gap BUN Creatinine Est Cr Clr Drug Dosing Est GFR ( Amer) Est GFR (Non-Af Amer) BUN/Creatinine Ratio Glucose POC Glucose Estimat Average Glucose Hemoglobin A1c Calcium Phosphorus Magnesium Total Bilirubin AST ALT Alkaline Phosphatase Troponin I 0.058 H* Total Protein Albumin Globulin Albumin/Globulin Ratio Triglycerides Cholesterol LDL Cholesterol, Calc VLDL Cholesterol, Calc HDL Cholesterol Cholesterol/HDL Ratio Urine Color Yellow Urine Appearance Clear Urine pH 6.5 Ur Specific [place] > 1.045 H Urine Protein Negative Urine Glucose (UA) Negative Urine Ketones Negative Urine Blood Negative Urine Nitrite Negative Urine Bilirubin Negative Urine Urobilinogen Negative Ur Leukocyte Esterase Negative Nasal Screen MRSA (PCR) Negative Hepatitis C Ab Screen SARS-CoV-2 Ag (Rapid) Blood Type Antibody Screen 09/22/20 09/23/20 09/23/20 Unknown 04:43 04:43 WBC 8.30 RBC 4.77 Hgb 13.8 L Hct 40.0 L MCV 83.9 MCH 28.9 MCHC 34.5 RDW Std Deviation 40.1 RDW Coeff of Eran 13.2 Plt Count 299 MPV 9.7 Immature Gran % (Auto) 0.5 Neut % (Auto) 57.7 Lymph % (Auto) 30.0 [place] % (Auto) 7.7 Eos % (Auto) 3.5 Baso % (Auto) 0.6 Neut # (Auto) 4.79 Lymph # (Auto) 2.49 [place] # (Auto) 0.64 H Eos # (Auto) 0.29 Baso # (Auto) 0.05 Immature Gran # (Auto) 0.04 H Sodium 139 Potassium 3.5 Chloride 106 Carbon Dioxide 26 Anion Gap 7.0 BUN 10 Creatinine 0.99 Est Cr Clr Drug Dosing 94.2 Est GFR ( Amer) 96.9 Est GFR (Non-Af Amer) 83.6 BUN/Creatinine Ratio 10.5 Glucose 131 H POC Glucose Estimat Average Glucose Hemoglobin A1c Calcium 8.4 L Phosphorus 2.9 Magnesium 2.2 Total Bilirubin AST ALT Alkaline Phosphatase Troponin I 0.058 H* Total Protein Albumin Globulin Albumin/Globulin Ratio Triglycerides 747 H Cholesterol 216 H LDL Cholesterol, Calc VLDL Cholesterol, Calc HDL Cholesterol 31 Cholesterol/HDL Ratio 7 Urine Color Urine Appearance Urine pH Ur Specific [place] Urine Protein Urine Glucose (UA) Urine Ketones Urine Blood Urine Nitrite Urine Bilirubin Urine Urobilinogen Ur Leukocyte Esterase Nasal Screen MRSA (PCR) Hepatitis C Ab Screen SARS-CoV-2 Ag (Rapid) Negative Blood Type Antibody Screen 09/23/20 09/23/20 09/23/20 04:43 08:15 11:28 WBC RBC Hgb Hct MCV MCH MCHC RDW Std Deviation RDW Coeff of Eran Plt Count MPV Immature Gran % (Auto) Neut % (Auto) Lymph % (Auto) [place] % (Auto) Eos % (Auto) Baso % (Auto) Neut # (Auto) Lymph # (Auto) [place] # (Auto) Eos # (Auto) Baso # (Auto) Immature Gran # (Auto) Sodium Potassium Chloride Carbon Dioxide Anion Gap BUN Creatinine Est Cr Clr Drug Dosing Est GFR ( Amer) Est GFR (Non-Af Amer) BUN/Creatinine Ratio Glucose POC Glucose 143 H 142 H Estimat Average Glucose 154 Hemoglobin A1c 7.0 H Calcium Phosphorus Magnesium Total Bilirubin AST ALT Alkaline Phosphatase Troponin I Total Protein Albumin Globulin Albumin/Globulin Ratio Triglycerides Cholesterol LDL Cholesterol, Calc VLDL Cholesterol, Calc HDL Cholesterol Cholesterol/HDL Ratio Urine Color Urine Appearance Urine pH Ur Specific [place] Urine Protein Urine Glucose (UA) Urine Ketones Urine Blood Urine Nitrite Urine Bilirubin Urine Urobilinogen Ur Leukocyte Esterase Nasal Screen MRSA (PCR) Hepatitis C Ab Screen SARS-CoV-2 Ag (Rapid) Blood Type Antibody Screen 09/23/20 09/23/20 09/23/20 13:23 13:23 16:30 WBC RBC Hgb Hct MCV MCH MCHC RDW Std Deviation RDW Coeff of Eran Plt Count MPV Immature Gran % (Auto) Neut % (Auto) Lymph % (Auto) [place] % (Auto) Eos % (Auto) Baso % (Auto) Neut # (Auto) Lymph # (Auto) [place] # (Auto) Eos # (Auto) Baso # (Auto) Immature Gran # (Auto) Sodium 139 Potassium 3.8 Chloride 106 Carbon Dioxide 25 Anion Gap 8.0 BUN 14 Creatinine 1.28 Est Cr Clr Drug Dosing 72.9 Est GFR ( Amer) 71.0 Est GFR (Non-Af Amer) 61.3 BUN/Creatinine Ratio 11.0 Glucose 158 H POC Glucose 117 H Estimat Average Glucose Hemoglobin A1c Calcium 8.9 Phosphorus Magnesium 2.1 Cancelled Total Bilirubin AST ALT Alkaline Phosphatase Troponin I Total Protein Albumin Globulin Albumin/Globulin Ratio Triglycerides Cholesterol LDL Cholesterol, Calc VLDL Cholesterol, Calc HDL Cholesterol Cholesterol/HDL Ratio Urine Color Urine Appearance Urine pH Ur Specific [place] Urine Protein Urine Glucose (UA) Urine Ketones Urine Blood Urine Nitrite Urine Bilirubin Urine Urobilinogen Ur Leukocyte Esterase Nasal Screen MRSA (PCR) Hepatitis C Ab Screen SARS-CoV-2 Ag (Rapid) Blood Type Antibody Screen
--- NOTE | 2020-09-24 05:32 | Electrocardiogram Report ---
Test Reason : Blood Pressure : / mmHG Vent. Rate : 079 BPM Atrial Rate : 079 BPM P-R Int : 152 ms QRS Dur : 088 ms QT Int : 368 ms P-R-T Axes : 054 -21 115 degrees QTc Int : 421 ms Poor data quality, interpretation may be adversely affected Normal sinus rhythm Possible Left atrial enlargement Left ventricular hypertrophy with repolarization abnormality Abnormal ECG No previous ECGs available Confirmed by Uriel Elias ([id number]) on 09/24/2020 5:31:42 AM Referred By: REFERRED SELF Confirmed By:Uriel Elias
--- NOTE | 2020-09-24 05:42 | Electrocardiogram Report ---
Test Reason : Blood Pressure : / mmHG Vent. Rate : 074 BPM Atrial Rate : 074 BPM P-R Int : 142 ms QRS Dur : 090 ms QT Int : 404 ms P-R-T Axes : 061 -20 121 degrees QTc Int : 448 ms Normal sinus rhythm Possible Left atrial enlargement Left ventricular hypertrophy T wave abnormality, consider lateral ischemia Abnormal ECG When compared with ECG of 22-SEP-2020 17:52, T wave inversion more evident in Lateral leads Confirmed by Uriel Elias ([id number]) on 09/24/2020 5:41:47 AM Referred By: REFERRED SELF Confirmed By:Uriel Elias
[2020-09-24 06:37] LABS: Basophils # (auto) 0.05 K/uL (0-0.2); Basophils % (auto) 0.6 %; Eosinophils # (auto) 0.36 K/uL (0-0.5); Eosinophils % (auto) 4.4 %; Hematocrit (blood only) 41.8 % (42-52); Hemoglobin 14.2 g/dL (14.0-18.0); Immature Granulocytes # (auto) 0.02 K/uL (0.00-0.02); Immature Granulocytes % (auto) 0.2 %; Lymphocytes # (auto) 2.12 K/uL (1.2-3.4); Lymphocytes % (auto) 25.9 %; Mean Corpuscular Hemoglobin 29.2 pg (25-34); Mean Platelet Volume 9.8 fL (7.4-10.4); Monocytes # (auto) 0.75 K/uL (0.11-0.59); Monocytes % (auto) 9.2 %; Neutrophils # (auto) 4.88 K/uL (1.4-6.5); Neutrophils % (auto) 59.7 %; Platelet Count 266 K/uL (130-400); RDW Coefficient of Variation 13.1 % (11.5-14.5); RDW Standard Deviation 41.1 fL (36.4-46.3); Red Blood Count 4.86 M/uL (4.7-6.1); White Blood Count 8.18 K/uL (4.8-10.8)
[2020-09-24 07:02] LABS: BUN Creatinine Ratio 14.6 (10-20); Calcium 8.4 mg/dl (8.5-10.1); Creatinine Clr Calc Pharmacy 87.3 ml/min; Est GFR (African American) 89.2; Potassium 3.9 mmol/L (3.5-5.1)
[2020-09-24] MEDS: ATORVASTATIN 40 MG TAB PO SCH (08:33)
[2020-09-24] MEDS: INSULIN ASPART 100 UNITS/ML 3 ML PEN SC SCH ×2 (08:36→12:05)
[2020-09-24] MEDS ORDERED: ASPIRIN 81 MG ECTAB PO SCH (09:00)
[2020-09-24] MEDS ORDERED: lisinopril 5 MG TAB PO SCH (09:30)
--- NOTE | 2020-09-24 11:39 | Hospitalist Progress Note ---
Date of Service September 24, 2020 Assessment & Plan (1) Stroke: Acute CVA: Lacunar infarct in the left internal capsule Presented with with right upper extremity numbness and weakness Weakness improving, numbness about the same Brain MRI confirmed lacunar infarct in the left internal capsule CT angiogram of the head and neck: Unremarkable Echocardiogram: Normal left ventricular systolic function, ejection fraction 60 to 65%, no regional wall motion abnormalities, severe concentric LVH No significant valvular abnormalities, no visualized plaque to left interatrial shunt Aspirin 81 mg and Lipitor [address] Romario Yoo consulted PT and OT also consulted Will need strict risk factor control occluding diabetes, hypertension, dyslipidemia Follow-up with Dr. Yoo in 4 weeks Newly diagnosed diabetes type 2 A1c 7.0 Start Metformin ER 500 mg daily Outpatient follow-up Counseled by hospital educator as well Hypertension Patient not adherent to previous antihypertensive medications Lisinopril 5 mg p.o. daily started on hospital day #3 Repeat blood pressure 143/80 Continue to monitor as an outpatient Dyslipidemia Triglyceride 747 Cholesterol 260 Atorvastatin 40mg po daily Follow closely as an outpatient Episode of nonsustained ventricular tachycardia 15 beat run of V. tach on hospital day 2 Asymptomatic Echocardiogram: per #1 Outpatient cardiac monitoring needs to be arranged Monitor electrolytes Patient counseled on symptoms to watch out for and report to physician immediately if present Troponin elevation Troponin remained the same at 0.05 Nonspecific T wave changes in lateral leads Likely secondary to underlying LVH Echo: No wall motion abnormalities Denies chest pain Follow-up closely as an outpatient Plan Of care discussed in detail at length with patient Questions were answered He is understanding, agreeable, comfortable with the plan of care Disposition PT and OT evaluation pending Anticipate discharge home tomorrow medically Admission and Anticipated Discharge Date Admission Date: September 22, 2020 Subjective ff up for acute stroke, etc seen resting in bed, comfortable not in distress in good spirits States that he feels much better overall Right upper extremity still with some numbness, but weakness is improving No problems with ambulation No other focal neurologic deficits Denies headache, dizziness, chest pain, shortness of breath, palpitations, abdominal pain, nausea vomiting No other symptoms States that he is ready and would like to be discharged today Review of Systems Review of Systems: All systems reviewed & are unremarkable except as noted in Subjective Physical Exam Physical Exam: General- oriented x 3, not in distress, speaks in sentences with no effort or accessory muscle use Eyes- anicteric Neck- no JVD Lungs- clear breath sounds bilaterally, no rales/wheezes Heart- normal rate, regular rhythm; no murmurs Abdomen- normal bowel sounds, nondistended, soft, nontender Extremities- no pretibial edema, no calf tenderness Neuro- alert, oriented x 3; motor 5/5 on all ext, sensation 50% on right upper extremity, otherwise synovitis in all extremities No other gross focal neurologic deficits Skin- warm & dry Results & Data Results & Data ([facility]) Vital Signs (Past 12 Hours) Vital Signs Temp Pulse Resp BP Pulse Ox 09/24/20 11:06 36.7 C 75 20 143/80 H 95 09/24/20 08:04 36.6 C 85 20 170/92 H 90 09/24/20 03:26 36.8 C 70 16 150/81 H 97 09/24/20 00:36 36.7 C 64 18 158/77 H 96 Laboratory Results Laboratory Results - last 24 hr 09/23/20 09/23/20 09/23/20 13:23 13:23 16:30 WBC RBC Hgb Hct MCV MCH MCHC RDW Std Deviation RDW Coeff of Eran Plt Count MPV Immature Gran % (Auto) Neut % (Auto) Lymph % (Auto) [place] % (Auto) Eos % (Auto) Baso % (Auto) Neut # (Auto) Lymph # (Auto) [place] # (Auto) Eos # (Auto) Baso # (Auto) Immature Gran # (Auto) Sodium 139 Potassium 3.8 Chloride 106 Carbon Dioxide 25 Anion Gap 8.0 BUN 14 Creatinine 1.28 Est Cr Clr Drug Dosing 72.9 Est GFR ( Amer) 71.0 Est GFR (Non-Af Amer) 61.3 BUN/Creatinine Ratio 11.0 Glucose 158 H POC Glucose 117 H Calcium 8.9 Magnesium 2.1 Cancelled 09/23/20 09/24/20 09/24/20 20:05 05:57 05:57 WBC 8.18 RBC 4.86 Hgb 14.2 Hct 41.8 L MCV 86.0 MCH 29.2 MCHC 34.0 RDW Std Deviation 41.1 RDW Coeff of Eran 13.1 Plt Count 266 MPV 9.8 Immature Gran % (Auto) 0.2 Neut % (Auto) 59.7 Lymph % (Auto) 25.9 [place] % (Auto) 9.2 Eos % (Auto) 4.4 Baso % (Auto) 0.6 Neut # (Auto) 4.88 Lymph # (Auto) 2.12 [place] # (Auto) 0.75 H Eos # (Auto) 0.36 Baso # (Auto) 0.05 Immature Gran # (Auto) 0.02 Sodium 139 Potassium 3.9 Chloride 107 Carbon Dioxide 26 Anion Gap 6.0 BUN 16 Creatinine 1.06 Est Cr Clr Drug Dosing 87.3 Est GFR ( Amer) 89.2 Est GFR (Non-Af Amer) 77.0 BUN/Creatinine Ratio 14.6 Glucose 129 H POC Glucose 136 H Calcium 8.4 L Magnesium 09/24/20 07:18 WBC RBC Hgb Hct MCV MCH MCHC RDW Std Deviation RDW Coeff of Eran Plt Count MPV Immature Gran % (Auto) Neut % (Auto) Lymph % (Auto) [place] % (Auto) Eos % (Auto) Baso % (Auto) Neut # (Auto) Lymph # (Auto) [place] # (Auto) Eos # (Auto) Baso # (Auto) Immature Gran # (Auto) Sodium Potassium Chloride Carbon Dioxide Anion Gap BUN Creatinine Est Cr Clr Drug Dosing Est GFR ( Amer) Est GFR (Non-Af Amer) BUN/Creatinine Ratio Glucose POC Glucose 134 H Calcium Magnesium
--- NOTE | 2020-09-24 20:59 | Discharge Summary ---
Date of Service September 24, 2020 Admission HPI Per Admitting Provider Patient is a 59-year-old male with a significant past medical history of untreated hypertension. He presented to the emergency department this afternoon with a 3-day history of RIGHT upper extremity numbness, weakness, and loss of sensation. He reports that he initially noticed this on Sunday afternoon while driving. He states that he initially had mostly numbness and difficulty with movement. The symptoms had not improved in the Sunday. Today, the patient had some trouble shaving as he could not control his RIGHT hand. He also noticed RIGHT-sided facial numbness today and his reported that he was slurring his speech. In addition, while outside, the reports that he was unsteady on his feet and did stumble into their son's car. Patient has never experienced similar symptoms in the past. He does report that he was previously treated with 2 medications for his high blood pressure, but has not seen a primary care doctor in at least 5 years. The patient reports that he has had ongoing shortness of breath which has not been new over the last few years. Additionally, he complains of some occasional chest discomfort which he has difficulty explaining, but reports that it has been very rare and on occasion only over the past few years. Patient has a remote history of smoking. He quit 15 years ago. He does not drink alcohol. The patient lives with his . He is gainfully employed. Other than the above-mentioned symptoms, the patient currently denies any complaints of headaches, dizziness, lightheadedness, visual disturbances, facial droop, chest pain, palpitations, shortness of breath, diaphoresis, nausea, vomiting, or abdominal discomfort. Admission Exam Per Admitting Provider VITAL SIGNS - Vital signs and nursing notes were reviewed. GENERAL - 59-year-old male appearing his stated age who is in no acute distress. Communicates well with provider and answers questions appropriately. HEAD - Normocephalic, Atraumatic. No Bales's Sign or Raccoon's Eyes. No depressed skull fractures palpable. EYES - PERRL with EOMI bilaterally. Sclera anicteric. Palpebral conjunctiva pink and moist with no injection noted. EARS - No deformities of external structures noted on gross examination bilaterally. No pain elicited with palpation of the tragus bilaterally. NOSE - Midline and without cyanosis. No epistaxis or purulent drainage noted. Septum midline without deviation or septal hematoma noted. MOUTH/OROPHARYNX - Without perioral cyanosis. Buccal mucosa pink and moist and without leukoplakia. Tongue midline with equal elevation of palate bilaterally. No tonsillar hypertrophy, erythema, or exudates noted. NECK - Neck with FROM. Supple to palpation. No lymphadenopathy noted. No nuchal rigidity. LUNGS - Chest wall symmetric without accessory muscle use, intercostals retractions, or central cyanosis. Normal vesicular breath sounds CTA B/L. No wheezes, rales, or rhonchi appreciated. CARDIAC - RRR with S1/S2. No murmur, rubs, or gallops appreciated. ABDOMEN - Abdominal contour obese without pulsations or visible masses. BS normoactive all four quadrants. No tenderness, palpable masses, hepatosplenomegaly, or ascites noted. EXTREMITIES - No pretibial edema present. +3/5 radial and dorsalis pedis pulses palpated throughout. FROM with no tremors, fasciculations, or clonus noted on PROM throughout. Patient is with a slight bit of weakness in the RIGHT upper extremity versus left. Lower extremities with bilateral +5/5 strength. NEUROLOGIC -despite full range of motion of the RIGHT upper extremity, the patient is with drift on exam. Additionally, he has difficulty with [id number]. He also has obvious discrepancy of sensation with sharp versus dull sensation to the RIGHT upper extremity and RIGHT-sided face. No other abnormalities noted. PSYCH - A&Ox3 and cooperates fully with examiner. Pt is very pleasant and interacts well with examiner. Principal Diagnosis Acute lacunar infarct left internal capsule Discharge Exam General- oriented x 3, not in distress, speaks in sentences with no effort or accessory muscle use Eyes- anicteric Neck- no JVD Lungs- clear breath sounds bilaterally, no rales/wheezes Heart- normal rate, regular rhythm; no murmurs Abdomen- normal bowel sounds, nondistended, soft, nontender Extremities- no pretibial edema, no calf tenderness Neuro- alert, oriented x 3; motor 5/5 on all ext, sensation 50% on right upper extremity, otherwise synovitis in all extremities No other gross focal neurologic deficits Skin- warm & dry Discharge Data Allergies Allergy/AdvReac Type Severity Reaction Status Date / Time No Known Allergies Allergy Unverified 09/22/20 20:57 Consultations 09/22/20 20:27 ED Decision to Admit Stat 09/22/20 21:32 Consult Neurology Routine 09/22/20 21:33 Consult Case Management - Discharge Planning Routine Ordered Studies 09/22/20 18:08 CT angio head w con Stat CT angio neck with con Stat There is no mass, hematoma, midline shift, or acute infarct. Visualized intracranial internal carotid arteries, distal vertebral arteries, and basilar artery are widely patent. There is no significant stenosis, occlusion, or aneurysm seen within the bilateral ACAs, MCAs, or career resource technician. The major dural venous sinuses are patent. Mild calcified plaque within the distal left vertebral artery. The aortic arch and proximal great vessels are widely patent. There is no significant stenosis, occlusion, or dissection identified within the bilateral common carotid, internal carotid, or vertebral arteries. The lung apices demonstrate an incidental note of a right azygos lobe. Mild emphysema. Minimal calcified plaque within the left carotid bifurcation. There are tortuous bilateral internal carotid arteries. IMPRESSION: 1. No significant stenosis, occlusion, or aneurysm within the jackson of [place]. 2. No significant stenosis, occlusion, or dissection identified within the carotid or vertebral arteries. CT head/brain wo con Stat Findings: The paranasal sinuses and mastoid air cells are clear. The calvarium and skull base are intact. The ventricles and sulci are within normal limits. There is no mass, hematoma, midline shift, or acute infarct. Impression: No acute intracranial abnormality. 09/23/20 21:32 MR brain wo con Routine FINDINGS: There is a 7 mm focus of restricted diffusion within the posterior limb of the left internal capsule. This is consistent with a punctate acute infarct. The midline structures are intact. There is no mass, hematoma, midline shift. There are few scattered punctate foci of T2 hyperintensity seen within the periatrial white matter. These are nonspecific but favor mild microvascular ischemic change. The major vascular flow-voids at the skull is are well- maintained. The mastoid air cells are clear. Small retention cyst within the right maxillary sinus. Otherwise, the paranasal sinuses are clear. The ventricles and sulci are within normal limits for age. IMPRESSION: 1. A punctate acute lacunar infarct seen within the posterior limb of the left internal capsule. 2. A few scattered T2 hyperintense foci seen within the periventricular white matter. These are nonspecific but favor mild microvascular ischemic change. Diabetes Follow up Diabetes Follow-up Needed for Newly Diagnosed Diabetes Hospital Course (1) Stroke: Acute CVA: Lacunar infarct in the left internal capsule Presented with with right upper extremity numbness and weakness Weakness improving, numbness about the same Brain MRI confirmed lacunar infarct in the left internal capsule CT angiogram of the head and neck: Unremarkable Echocardiogram: Normal left ventricular systolic function, ejection fraction 60 to 65%, no regional wall motion abnormalities, severe concentric LVH No significant valvular abnormalities, no visualized plaque to left interatrial shunt Aspirin 81 mg and Lipitor [address] Romario Yoo consulted PT and OT also consulted Will need strict risk factor control occluding diabetes, hypertension, dyslipidemia Follow-up with Dr. Yoo in 4 weeks Newly diagnosed diabetes type 2 A1c 7.0 Start Metformin ER 500 mg daily Outpatient follow-up Counseled by life educator as well Hypertension Patient not adherent to previous antihypertensive medications Lisinopril 5 mg p.o. daily started on hospital day #3 Repeat blood pressure 143/80 Continue to monitor as an outpatient Dyslipidemia Triglyceride 747 Cholesterol 260 Atorvastatin 40mg po daily Follow closely as an outpatient Episode of nonsustained ventricular tachycardia 15 beat run of V. tach on hospital day 2 Asymptomatic Echocardiogram: per #1 Outpatient cardiac monitoring needs to be arranged Monitor electrolytes Patient counseled on symptoms to watch out for and report to physician immediately if present Troponin elevation Troponin remained the same at 0.05 Nonspecific T wave changes in lateral leads Likely secondary to underlying LVH Echo: No wall motion abnormalities Denies chest pain Follow-up closely as an outpatient Plan Of care discussed in detail at length with patient Questions were answered He is understanding, agreeable, comfortable with the plan of care Disposition PT and OT evaluation pending Anticipate discharge home tomorrow medically Total Time Total Time Spent Total Time Spent (In Minutes): 50 minutes Discharge Plan Discharge Items Patient Disposition: Home - Self-Care Reason For Visit: RUE WEAKNESS, CVA S/S, NSTEMI, HTN EMERGENCY Discharge Diagnosis: Acute stroke Diabetes mellitus Hypertension Elevated cholesterol level Condition on Discharge: Good Activity: Resume your previous activity Activity Comment: Gradually as tolerated, no heavy exertion until evaluated by primary care p Lifting: Wait until after follow-up appointment Exercise/Sports: Wait until after follow-up appointment Driving/Machine Use: No driving until reevaluated by primary care physician next week Non-emergency contact: Primary Care Provider Call non-emergency contact if: you have any medication questions, your symptoms worsen and you have a fever Follow-up/Referrals: Morejon,Ankit E., MD [Primary Care Provider] - (Monday, September 28, 2020With JOSE MIGUEL Srivastava) Romario Yoo MD [Physician] - (DR [facility] OFFICE WILL CALL YOU WITH A FOLLOW UP APT.) Diet: Carb Consistent or DM2 and Heart Healthy Addtl Attending Provider Instructions: Please review your new medication list and follow instructions carefully. Your new medications include: Aspirin-antiplatelet for stroke prevention, always take with a full stomach Lipitor-to lower cholesterol levels Lisinopril-for blood pressure control Metformin-for diabetes Call primary care physician or return to the ER immediately if with worsening of symptoms, Weakness or dizziness, headache, chest pain, palpitations. Please follow-up with your primary care provider as noted above. Please follow-up with neurologist Dr. Romario Yoo in 3 to 4 weeks. Please call his office for an appointment. Contact information noted above. Who to Call and When: Medical Emergencies: Call 911 immediately if you experience any of the following warning signs and symptoms of Stroke: Sudden numbness or weakness of the face, arm or leg, especially on one side of the body Sudden confusion, trouble speaking or understanding Sudden trouble seeing in one or both eyes Sudden trouble walking, dizziness, loss of balance or coordination Sudden severe headache with no cause Do not delay calling 911 if you experience any warning signs or symptoms of a stroke. Delay in seeking medical attention may affect what treatments can be given to you. Risk Factors for Stroke: You can reduce your chances of stroke by working with your medical provider to adopt a healthy lifestyle. Some specific ways to lower your chance of stroke are: If you are a smoker, now is the time to stop smoking cigarettes If you are diabetic, improve the control of your blood sugars Avoid excessive amounts of alcohol Control high blood pressure Lose weight if you are overweight Be sure to lead an active lifestyle Eat a healthy diet low in salt, cholesterol and fat You should know about other risk factors for stroke that you are unable to control. These include: Age 55 years or older Male gender Certain racial groups: , or / Family History of Stroke, Mini stroke or Heart Attack Sickle Cell Disease Follow Up: It is important for you to keep your follow up appointments with your medical provider. . Pending Studies at Discharge: No Stand-Alone Forms: My [facility] [email or web address], Smoking Cessation Medications and DC Order Prescriptions: New atorvastatin 40 mg Tablet 40 mg PO QAM Qty: 30 RF: 1 aspirin 81 mg Tablet,Delayed Release (Dr/Ec) 81 mg PO QAM Qty: 30 RF: 1 lisinopril [Zestril] 5 mg Tablet 5 mg PO DAILY Qty: 30 RF: 1 metformin 500 mg tablet extended release 24 hr 500 mg PO DAILY Qty: 30 RF: 1 Continued omeprazole magnesium [Prilosec OTC] 20 mg Tablet,Delayed Release (Dr/Ec) 20 mg PO DAILY RF: 0 Discharge Orders: Discharge Order (Routine); Ordered 09/24/20 Ordered By: Seven Kirby Admission Data Admit Date/Time: 09/22/20 21:29 Attending Provider: Seven Kirby Admit Provider: Nu Sharif Primary Care Provider: Ankit Morejon Other Providers: Sara Rice ; Romario Yoo Other Interventions: Discharge Summary Assessment (RN) Last Done: 09/24/20 12:20
--- NOTE | 2020-09-25 06:07 | Electrocardiogram Report ---
Test Reason : Blood Pressure : / mmHG Vent. Rate : 067 BPM Atrial Rate : 067 BPM P-R Int : 140 ms QRS Dur : 082 ms QT Int : 402 ms P-R-T Axes : 063 -14 143 degrees QTc Int : 424 ms Normal sinus rhythm Minimal voltage criteria for LVH, may be normal variant Abnormal ECG When compared with ECG of 23-SEP-2020 06:37, No significant change was found Confirmed by Uriel Elias ([id number]) on 09/25/2020 6:07:33 AM Referred By: REFERRED SELF Confirmed By:Uriel Elias
== END 2020-09-24 13:13 | disposition home or self-care (01) | DRG 65 ==
LOC: ED 17:38 → 1E 21:29 → SUATTDRO 21:29 → 1E 23:17 → 2S 09-23 18:23